=== PATIENT | male | born 1955 | race Caucasian/White ===

== ENCOUNTER → 2017-11-20 | Outpatient (CLI) | payer OTHER ==
[~2017-11-20] MED LIST: ATENOLOL 100MG100 M2 PO; AZOR 10-20 MG1 EACH PO; CARISOPRODOL 3350 MG PO; HYDROCODON-ACE1 EACH PO; IBUPROFEN 600600 M1 PO; PERCOCET 5-3251 EACH PO; PROMETHAZINE12.5 M1 PO
== END ==
LOC: M.ULTRA 16:30
DX: M79.89 Other specified soft tissue disorders (principal); M79.661 Pain in right lower leg; R60.0 Localized edema; G43.911 Migraine, unspecified, intractable, with status migrainosus